=== PATIENT | female | born 1930 | race Caucasian/White ===

== ENCOUNTER → 2020-03-09 | Outpatient (CLI) | payer OTHER, MEDICARE ==
[~2020-03-09] MED LIST: BINOSTO70 MG PO; BYSTOLIC 5 MG5 MG PO; CARDIO TEA1 EACH PO; CO Q-10100 MG PO; EXFORGE PO; HYDROCODON-ACE1 EAC7 PO; LIPITOR 40 MG T40 M1 PO; LIVALO4 MG PO; LO-DOSE ASPIRIN81 M1 PO; LUMIGAN2.5 ML OP; MULTI-VITAMIN1 EAC5 PO; NORVASC 5 MG TAB5 MG PO; OMEGA-3 + VITA1 EAC1 PO; OS-CAL ULTRA T1 EACH PO; VITAMIN D1000 UNI1 PO; VITAMIN E400 UNIT PO
== END ==
LOC: LAB 13:52
PROVIDERS: ATTEND Family Medicine
DX: Z20.828 Contact with and (suspected) exposure to other viral communicable diseases (principal)